=== PATIENT | female | born 1975 | race Caucasian/White ===

== ENCOUNTER 2025-06-20 06:34 | Observation (INO) ==
--- NOTE | 2025-05-16 11:19 | PAT Medication Instructions ---
Medication Instructions Date of Service May 16, 2025 Home Medications hydrochlorothiazide 25 mg tablet 25 mg PO QAM Allergy Shots 3 dose IM MONTHLY L.acidoph,paracasei,B.animalis 10 billion cell capsule 10 cell PO PM buspirone 7.5 mg tablet 7.5 mg PO BID cholecalciferol (vitamin D3) 125 mcg (5,000 unit) tablet (Vitamin D3) 125 mcg PO QAM cyanocobalamin (vitamin B-12) 1,000 mcg tablet 1,000 mcg PO QAM cyanocobalamin (vitamin B-12) 1,000 mcg/mL injection solution 1,000 mcg IM MONTHLY glucosamine-chondroitin 250 mg-200 mg tablet 1 tab PO BID ibuprofen 200 mg tablet 200 mg PO Q6H PRN Pain levocetirizine 5 mg tablet (Xyzal) 5 mg PO HS norethindrone 0.4 mg-ethinyl estradiol 35 mcg tablet (Briellyn) 1 tab PO HS ASK your surgeon for instructions ibuprofen 200 mg tablet 200 mg PO Q6H PRN Pain norethindrone 0.4 mg-ethinyl estradiol 35 mcg tablet (Briellyn) 1 tab PO HS ASK your prescriber and surgeon Allergy Shots 3 dose IM MONTHLY STOP taking 2 weeks before surgery (or as soon as possible if surgery is within 2 weeks) glucosamine-chondroitin 250 mg-200 mg tablet 1 tab PO BID DO NOT take the morning of surgery hydrochlorothiazide 25 mg tablet 25 mg PO QAM cholecalciferol (vitamin D3) 125 mcg (5,000 unit) tablet (Vitamin D3) 125 mcg PO QAM cyanocobalamin (vitamin B-12) 1,000 mcg tablet 1,000 mcg PO QAM cyanocobalamin (vitamin B-12) 1,000 mcg/mL injection solution 1,000 mcg IM MONTHLY Take morning of surgery With a small sip of water, OTHERWISE NOTHING TO EAT OR DRINK AFTER MIDNIGHT: buspirone 7.5 mg tablet 7.5 mg PO BID Take evening before surgery L.acidoph,paracasei,B.animalis 10 billion cell capsule 10 cell PO PM buspirone 7.5 mg tablet 7.5 mg PO BID levocetirizine 5 mg tablet (Xyzal) 5 mg PO HS Other Notes If you have any questions please call us at [phone] or [phone] or [phone] or [phone]
--- NOTE | 2025-05-21 10:46 | Anesthesiology Consultation ---
Date of Service May 21, 2025 Assessment & Plan (1) Encounter for pre-operative examination: - check urine test STAT am DOS. - Outpatient joint assessment: Patient is currently scheduled for inpatient pathway. If re-evaluated and patient/surgeon requests outpatient pathway, patient is not recommended candidate for outpatient joint program. Chart Review Chart Review: Acceptable Risk for Surgery and Patient seen in Pre Admission T esting Teaching & Discussion Pre-Anesthesia Teaching/Discussion Notes: Instructed NPO after midnight before surgery, except medications with 15 cc of water. Medication instructions provided according to the PAT guidelines. History Surgery Operation Date: 06/20/25 12:30 Proposed Procedures p Robotic Assisted Right Total Knee Arthroplasty - Martir Mariscal, Height/Weight Height: 5 ft 5 in Weight: 120 kg Allergies Allergy/AdvReac Type Severity Reaction Status Date / Time tramadol Allergy Intermediate Rash Verified 05/16/25 10:24 triamcinolone Allergy Intermediate Rash Verified 05/16/25 10:24 Medications Home Medications Medication Instructions Recorded Confirmed Last Taken hydrochlorothiazide 25 mg tablet 25 mg PO QAM 04/09/25 05/16/25 Unknown Allergy Shots 3 dose IM MONTHLY 05/16/25 05/16/25 Unknown L.acidoph,paracasei,B.animalis 10 10 cell PO PM 05/16/25 05/16/25 Unknown billion cell capsule buspirone 7.5 mg tablet 7.5 mg PO BID 05/16/25 05/16/25 Unknown cholecalciferol (vitamin D3) 125 125 mcg PO QAM 05/16/25 05/16/25 Unknown mcg (5,000 unit) tablet (Vitamin D3) cyanocobalamin (vitamin B-12) 1,000 mcg PO QAM 05/16/25 05/16/25 Unknown 1,000 mcg tablet cyanocobalamin (vitamin B-12) 1,000 mcg IM MONTHLY 05/16/25 05/16/25 Unknown 1,000 mcg/mL injection solution glucosamine-chondroitin 250 mg-200 1 tab PO BID 05/16/25 05/16/25 Unknown mg tablet ibuprofen 200 mg tablet 200 mg PO Q6H PRN Pain 05/16/25 05/16/25 Unknown levocetirizine 5 mg tablet (Xyzal) 5 mg PO HS 05/16/25 05/16/25 Unknown norethindrone 0.4 mg-ethinyl 1 tab PO HS 05/16/25 05/16/25 Unknown estradiol 35 mcg tablet (Kyaw) Past Medical History Medical History (Updated 05/21/25 @ 11:14 by Sophie Hollingsworth PA-C) Anxiety B12 deficiency Difficult intravenous access Hypertension controlled, stable per pt Needle phobia Patient denies h/o stroke, seizures, heart attack, heart failure, DM, blood clots/DVTs or blood transfusions. Exercise / Class Metabolic Activity II 4-5 Yardwork/Stairs/Walk up hill (denies chest discomfort or shortness of breath with one flight of stairs) Past Surgical History Surgical History (Updated 05/21/25 @ 11:12 by Sophie Hollingsworth PA-C) History of arthroscopy right knee History of carpal tunnel release of both wrists Hx of gastric bypass Hx of varicose vein ligation and stripping Status post ablation of incompetent vein using laser [place] teeth extracted Past Anesthesia History No Hx of Anesthesia Complications and No Family Hx of Anesthesia Complications History of PONV No Hx of PONV and No Hx of Motion Sickness Social History Smoking Status: Former smoker Smoking cigarettes per day: 20 yrs ago Do You Dip or Chew Tobacco: No Hx Alcohol Use: Yes alcohol intake frequency: holidays/special occasions only Hx Substance Use: No substance use type: does not use Review of Systems Patient denies chest pain, shortness of breath, dyspnea on exertion, snoring, witnessed apneas, reflux, fever, chills, cough, wheezing, or palpitations. Physical Exam Vital Signs Vitals BP 131/86 P 74 TEMP 98.0 SP02 97% on RA RESP Physical Patient resting comfortably in chair in no acute distress, alert and oriented, responding appropriately throughout visit Full cervical extension range of motion without pain TMD 3.5 finger breadths Mallampati Score 3 Dentition: several caps/crowns, denies chipped or loose teeth, caps/crowns, implants or bridges Lungs: normal respiratory effort. Good air movement, clear throughout to auscultation, no adventitious breath sounds Cardiac: regular rate and rhythm, no murmurs noted Carotid arteries: negative bruit bilat Lab Results Anesthesia Preop Results Results Anesthesia Widget: WBC 6.88 K/ul (4.8-10.8) 05/21/25 Hgb 13.1 g/dl (12.0-16.0) 05/21/25 Hct 39.1 % (37.0-47.0) 05/21/25 Plt 324 K/uL (130-400) 05/21/25 Na 138 mmol/L (136-145) 05/21/25 K 3.5 mmol/L (3.5-5.1) 05/21/25 Cl 104 mmol/L (98-107) 05/21/25 CO2 30 mmol/L (21-32) 05/21/25 BUN 16 mg/dl (6-23) 05/21/25 Creat 0.68 mg/dl (0.6-1.2) 05/21/25 Glucose Level 87 mg/dl (70-99(Fasting)) 05/21/25 PT 9.9 Seconds (9.0-12.0) 05/21/25 PTT 28 Seconds (21-31) 05/21/25 INR 0.9 (0.9-1.1) 05/21/25 Blood Type A Negative 05/21/25 Antibody Screen NEGATIVE 05/21/25 Testing Electrocardiogram Date: 10/28/24 NSR, rate 65 bpm Chest X-Ray Date: 05/21/25 No acute findings.
--- NOTE | 2025-06-18 12:37 | History & Physical Report ---
Date of Service June 18, 2025 Assessment & Plan (1) Osteoarthritis of right knee: We will proceed with a right total knee arthroplasty. Postoperatively, she will be started on aspirin for DVT prophylaxis and kept overnight in the hospital for postop medical management. She plans to have the hospital set up home health for discharge. History of Present Illness Chief Complaint: Osteoarthritis of the right knee. Primary Care Provider: NO PCP Liz is a pleasant 50-year-old female who has been dealing with chronic increasing right knee pain. She has seen another provider. X-rays have shown advanced lateral compartmental arthritis of her right knee. She has done several sessions in physical therapy. She has done cortisone injections and viscosupplementation. Unfortunately, she is still having a lot of pain in her knee. After failing conservative treatment, she has elected to proceed with a right total knee arthroplasty. Allergies Allergy/AdvReac Type Severity Reaction Status Date / Time tramadol Allergy Intermediate Rash Verified 05/16/25 10:24 triamcinolone Allergy Intermediate Rash Verified 05/16/25 10:24 Home Medications Medication Instructions Recorded Confirmed Type hydrochlorothiazide 25 mg tablet 25 mg PO QAM 04/09/25 05/16/25 History Allergy Shots 3 dose IM MONTHLY 05/16/25 05/16/25 History L.acidoph,paracasei,B.animalis 10 10 cell PO PM 05/16/25 05/16/25 History billion cell capsule buspirone 7.5 mg tablet 7.5 mg PO BID 05/16/25 05/16/25 History cholecalciferol (vitamin D3) 125 125 mcg PO QAM 05/16/25 05/16/25 History mcg (5,000 unit) tablet (Vitamin D3) cyanocobalamin (vitamin B-12) 1,000 mcg PO QAM 05/16/25 05/16/25 History 1,000 mcg tablet cyanocobalamin (vitamin B-12) 1,000 mcg IM MONTHLY 05/16/25 05/16/25 History 1,000 mcg/mL injection solution glucosamine-chondroitin 250 mg-200 1 tab PO BID 05/16/25 05/16/25 History mg tablet ibuprofen 200 mg tablet 200 mg PO Q6H PRN Pain 05/16/25 05/16/25 History levocetirizine 5 mg tablet (Xyzal) 5 mg PO HS 05/16/25 05/16/25 History norethindrone 0.4 mg-ethinyl 1 tab PO HS 05/16/25 05/16/25 History estradiol 35 mcg tablet ([place]marlen[place]) Past Med/Surg History Problem List Encounter for pre-operative examination Osteoarthritis of right knee Medical History Difficult intravenous access Needle phobia B12 deficiency Anxiety Hypertension controlled, stable per pt Surgical History History of carpal tunnel release of both wrists Status post ablation of incompetent vein using laser Hx of varicose vein ligation and stripping History of arthroscopy right knee Hx of gastric bypass [place] teeth extracted Social History Smoking Status: Former smoker Cigarettes Per Day: 20 yrs ago; Second Hand Exposure: No; Do You Dip or Chew Tobacco: No; Hx Alcohol Use: Yes Hx Substance Use: No Preferred Language: Amharic Communication Ability: Effective Can Sealer Required: No Beliefs That Will Affect Care: None Current Living Situation: Family Feels Safe at Home: Yes Assistive Devices: Glasses Review of Systems All systems reviewed & are unremarkable except as noted in HPI & below. Physical Exam On physical exam of the right knee, she has a valgus deformity. Tenderness palpation of the distal lateral femoral condyle and over the lateral joint line.. Constitutional WD/WN, vitals as above Eyes PERRL, conjunctivae normal, anicteric sclerae ENMT external ear and nose normal, oropharynx normal Neck trachea midline, no thyromegaly Respiratory normal respiratory effort Cardiovascular RRR, no murmur, no edema Gastrointestinal (Abdomen) normal bowel sounds, soft, nontender, no hepatosplenomegaly Psychiatric A+Ox3, euthymic affect Results & Data Results & Data Laboratory Results . Diagnostic Findings . PG Care Time/CCT Total # of Minutes Spent Total Time Spent with Patient: Total time spent is greater than 50% in coordination of care (as documented) at patient's floor/unit and/or counseling patient: Coding Level of Care Code None Diagnoses Osteoarthritis of right knee M17.11
[~2025-06-20 06:34] MED LIST: LR 500ML BOLUS, THEN 15ML/HR IV SCH; ROPIVACAINE 0.5% 5 MG/ML 30 ML VIAL ONE
--- NOTE | 2025-06-20 06:44 | History & Physical Bridge Note ---
Date of Service June 20, 2025 History & Physical Bridge Note I have examined the patient, reviewed the History & Physical and in the interval since the performance of the History & Physical I have noted the following changes of clinical significance: no changes noted
[2025-06-20] MEDS ORDERED: ONDANSETRON INJ 2 MG/ML 2 ML VIAL ONE (06:54)
[2025-06-20] MEDS ORDERED: PROPOFOL IV EMULSION 10 MG/ML 20 ML VIAL IV ONE (06:54)
[2025-06-20] MEDS ORDERED: MIDAZOLAM HCL 1 MG/ML 2ML VIAL ONE (06:55)
[2025-06-20] MEDS: ACETAMINOPHEN 500 MG TAB PO SCH ×2 (07:02→13:37)
[2025-06-20] MEDS: LR 60ML/HR IV SCH (07:02)
[2025-06-20] MEDS: LR 500ML BOLUS, THEN 15ML/HR IV SCH (07:02)
[2025-06-20] MEDS: FAMOTIDINE 20 MG TAB PO SCH (07:02)
[2025-06-20] MEDS ORDERED: LIDOCAINE 2% 2 ML VIAL/AMP(20MG/ML) INFIL ONE ×2 (07:03→07:04)
[2025-06-20] MEDS: GABAPENTIN 900 MG DOSE PO SCH (07:04)
[2025-06-20] MEDS: dexAMETHasone**PF** 10 MG/ML VIAL IV SCH (07:04)
[2025-06-20] MEDS ORDERED: ATROPINE SULFATE 0.1 MG/ML 10ML SYR IV PRN (07:23)
[2025-06-20] MEDS ORDERED: ONDANSETRON INJ 2 MG/ML 2 ML VIAL IV PRN ×2 (07:23→11:36)
[2025-06-20] MEDS ORDERED: HYDROmorphone INJ 1 MG/ML SYRINGE IV PRN (07:23)
[2025-06-20] MEDS: TRANEXAMIC ACID 1,000 MG **IV Pre-op IV SCH (07:41)
[2025-06-20] MEDS: ceFAZolin 3000MG 3,000 MG/72.5 ML BAG IV SCH (07:51)
[2025-06-20] MEDS ORDERED: KETAMINE HCL 10MG/ML SYR ONE (07:59)
[2025-06-20] MEDS: ROPIV 0.5% 246mg, Ketorolac 30mg, EPINEPHrine 0.5mg in NSS INFIL SCH (08:22)
[2025-06-20] MEDS: ORTHO JOINT ANESTHETIC ONE (08:22)
[2025-06-20] MEDS ORDERED: ePHEDrine sulfate 50 MG/5 ML SYR ONE (08:34)
--- NOTE | 2025-06-20 09:15 | Operative Report ---
PG Post Operative Report Pre & Post Diagnosis Operation Date: 06/20/25 08:00 Pre-Op Diagnosis: Right Knee Arthritis Post-Op Diagnosis: Right Knee Arthritis I identified the patient and participated in the time-out.: Yes Procedure Operation Date: 06/20/25 08:00 Actual Procedures p Robotic Assisted Right Total Knee Arthroplasty(Right) - Martir Mariscal DO Surgeon Martir Mariscal DO Electrolysis Operator Abby Salcedo PA-C Estimated Blood Loss 30 Findings Consistent with Post-Op Diagnosis Specimens Right femoral and tibial bone Description of Procedure Implants used: I used a Sherley Persona total knee arthroplasty system with a size 8 narrow PS femur, E tibia, 29 patella, and a size 12 CPS polyethylene bearing. All components were press-fit in place. Jennifer arrived [facility] for the above procedure. She was seen in the preoperative holding area and the operative extremity was identified and signed. She was given a preoperative antibiotic, TXA, a spinal anesthetic and an adductor nerve block. She was taken back to the operating room and laid on the table in supine position. She was given basic sedation. The operative knee was then prepped and draped in sterile fashion. A timeout was done, and the patient and the operative extremity was properly identified. A midline incision was made directly over the patella. Dissection was taken down to the extensor mechanism. A medial parapatellar arthrotomy was used. The medial retinaculum was released and the fat pad was mostly excised. The knee was flexed and the ACL, PCL, and meniscus were removed. The alignment of the knee replacement was assisted with a SherleyXpliant robotic knee. The femoral array was pinned in the distal femur and the tibial array was pinned using a percutaneous technique in the upper shaft of the tibia. The robot was appropriately calibrated and the structure of the knee was mapped out. The components were then manipulated on the screen to account for any malalignment and to assist in gap balancing. Once I was happy with the placement of the components on the screen, a distal femoral cutting guide was br ought in place. The distal femur was then resected. The femur measured to be a size 8. A 4-in-1 cutting block was then put into place by the robot and 2 peg holes were drilled. The 4-in-1 cutting block was then impacted into place and anterior, posterior, and chamfer cuts were made. The cutting block was then brought down to the tibia and pinned into place. The proximal tibia was then resected. The posterior aspect of the knee was then opened up and any additional meniscus fragments and osteophytes were removed. The tibia measured to be a size E. The tibial plate was then placed in the appropriate rotation and the tibia was drilled and punched. Trial components were then placed. The patella was then everted and 9 mm was resected off the posterior aspect of the patella. The patella measured to be a size 29. 3 peg holes were then drilled. A trial patella was placed. A size 12 CPS polyethylene insert was then trialed. The knee was brought through a full range of motion and felt to be stable. Trial components were then removed. The surrounding soft tissues were injected with 100 cc of an orthopedic pain control cocktail. All components were then press-fit into place. The final polyethylene insert was then snapped into place. The tourniquet was deflated. Hemostasis was obtained. A dilute betadyne lavage was then done for 3 minutes. The joint was then irrigated with normal saline solution. The medial parapatellar arthrotomy was then closed with #1 Vicryl suture. The skin was closed with 2-0 Vicryl, 3-0V lock suture, and Tana Zipline. A soft compressive dressing was placed. She was then transferred to a hospital bed and taken to the postanesthesia care unit in stable condition. She tolerated the procedure well. Abby Salcedo PA-C, was present for the entire procedure. He was critical for patient positioning, prepping, draping, retraction exposure, wound closure and application of sterile dressing. I attest to the content of the Intraoperative Record and any orders documented therein. Any exceptions are noted below.
--- NOTE | 2025-06-20 10:11 | XRay Report ---
XR knee RT 1 or 2V routine CLINICAL HISTORY: Surgical Post Op COMPARISON: None FINDINGS: Right knee prosthesis shows no hardware complication. There is expected soft tissue gas. IMPRESSION: Unremarkable postoperative exam. ACT 112: Negative or not required by law. Electronically signed by: Rajan Young M.D. 06/20/2025 10:09 AM
--- NOTE | 2025-06-20 10:57 | Anesthesiology Progress Note ---
Date of Service June 20, 2025 Anesthesia Post Procedure Vital Signs Vital Signs: Temp Pulse Resp BP Pulse Ox O2 Del Method O2 Flow Rate 06/20/25 10:35 36.8 C 89 13 148/77 H 93 Room Air 06/20/25 10:25 88 15 153/78 H 95 Room Air 06/20/25 10:15 93 H 14 145/83 H 96 Room Air 06/20/25 10:05 90 13 177/94 H 95 Room Air 06/20/25 09:55 97 H 16 164/91 H 94 Room Air 06/20/25 09:45 37.4 C 97 H 12 164/94 H 98 Oxymask 4 06/20/25 06:41 36.9 C 72 20 158/91 H 99 Room Air Transfer of Care Handoff Completed per policy Notes Mental Status: alert / awake / arousable and participated in evaluation Patient Amnestic to Procedure: Yes Nausea / Vomiting: adequately controlled Pain: adequately controlled Airway Patency, RR, SpO2: stable & adequate BP & HR: stable & adequate Hydration State: stable & adequate Anesthetic Complications: no major complications apparent and Pt Satisfied with anesthetic care
[2025-06-20] MEDS ORDERED: diphenhydrAMINE Capsule 25 MG CAP PO PRN (11:36)
[2025-06-20] MEDS ORDERED: NALOXONE HCL 0.4 MG/1 ML VIAL/CARP IV PRN (11:36)
[2025-06-20] MEDS ORDERED: MAGNESIUM HYDROXIDE SUSP 30 ML UDC PO PRN (11:36)
[2025-06-20] MEDS ORDERED: METOCLOPRAMIDE HCL INJ 5 MG/ML 2 ML VIAL IV PRN (11:36)
[2025-06-20] MEDS: SODIUM CHLORIDE 0.9% 1,000 ML IV SCH (13:36)
[2025-06-20] MEDS: KETOROLAC TROMETHAMINE 15 MG/ML VIAL IV SCH (13:37)
[2025-06-20] MEDS: ASPIRIN 81 MG ECTAB PO SCH (21:25)
[2025-06-20] MEDS: CETIRIZINE HCL 10 MG TABLET PO SCH (21:26)
[2025-06-20] MEDS: DOCUSATE SODIUM 100 MG CAP PO SCH (21:34)
[2025-06-20] MEDS: SENNA 8.6 MG TAB PO SCH (21:34)
[2025-06-21 03:09] VITALS: RESP 16; TEMP 98.1
[2025-06-21 07:29] VITALS: BP 150/82; O2SAT 99
[2025-06-21] MEDS: hydroCHLOROthiazide 25 MG TAB PO SCH (07:33)
[2025-06-21] MEDS: MULTIVITAMIN TAB PO SCH (07:33)
--- NOTE | 2025-06-21 07:37 | Orthopedic Progress Note ---
Date of Service June 21, 2025 Assessment & Plan (1) S/P total knee replacement not using cement: Overall she is doing very well. She is not having much pain in the right knee. She will be seen by physical therapy today for ambulation and range of motion exercises. She is on aspirin for DVT prophylaxis. The nursing staff can change her dressing after physical therapy. She can be discharged to home later today. She will follow-up with orthopedics in 2 weeks. Nadir Rodriguez was seen and examined at bedside this morning. Overall she is doing very well. She is not having too much pain in the right knee. It was a little bit better yesterday and is little bit more sore this morning but the pain medications are helping. She has been up and ambulating to the bathroom. She has no complaints.. Review of Systems All systems reviewed & are unremarkable except as noted in HPI & below. Physical Exam On physical exam of the right knee, the dressing is clean and dry. Her leg is out full extension. She has active dorsiflexion and plantarflexion of the right ankle.. Results & Data Results & Data Laboratory Results . Diagnostic Findings Postoperative x-rays of the right knee show the prosthesis to be in anatomic alignment without any evidence of fracture complication, or loosening.. PG Care Time/CCT Total # of Minutes Spent Total Time Spent with Patient: Total time spent is greater than 50% in coordination of care (as documented) at patient's floor/unit and/or counseling patient: Coding Level of Care Code 94432 Post Operative Follow-Up Diagnoses S/P total knee replacement not using cement Z96.659
[2025-06-21 11:28] VITALS: PULSE 94
== END 2025-06-21 11:57 | disposition home health service (06) ==
LOC: 3E 06:34 → ASU 06:34